=== PATIENT | male | born 1940 | race Caucasian/White ===

== ENCOUNTER 2016-03-13 19:03 | Emergency (ER) | payer OTHER ==
--- NOTE | 2016-03-13 20:29 | DIAGNOSTIC IMAGING REPORT ---
PROCEDURE: XR CHEST 1 VIEW INDICATION: SHORTNESS OF BREATH TECHNIQUE: Portable AP view (). COMPARISON: None. FINDINGS: Allowing for suboptimal inspiration, there is mild volume loss versus scarring. Mid and upper lungs are clear. Heart and mediastinum are normal. Right proximal humeral prosthesis. IMPRESSION: 1. Mild bibasilar subsegmental atelectasis versus scarring. 2. Otherwise negative chest.
--- NOTE | 2016-03-13 20:49 | ED CLINICAL REPORT ---
Clinical Report - Physicians/[facility] [address] [place] [address] 03/13/2016 19:05 Patient: ENRRIQUE LOZANO Time Seen: 19:35. Arrived- By private vehicle. Historian- patient. HISTORY OF PRESENT ILLNESS Chief Complaint: DYSPNEA and fever. This started about 1 week ago and is still present. It was gradual in onset and has been intermittent and waxing/waning. The dyspnea is described as moderate and is severe. The patient has had a cough, a subjective fever and chills. No sputum production, calf pain or foot swelling. He has had severe, sharp, stabbing right-sided chest pain (for several days - he was awakened by this one night. He says that it is similar to prior broken ribs that he has had.). REVIEW OF SYSTEMS The patient has had fever, chills, fatigue and difficulty breathing. No calf pain, pedal edema, palpitations, abdominal pain or constipation. No diarrhea, nausea, vomiting or urinary problems. All systems otherwise negative, except as recorded above. PAST HISTORY PCP - [facility]. Problems: Myocardial Infarction. Diabetes Mellitus. Additional Surgeries: Angioplasty of blood vessel. Corneal transplant. Wrist (L). Medications: Lisinopril Oral 40 mg, daily. Glimepiride Oral (Tablet 2 mg) 1 tablet, 2 x daily. Metoprolol Succinate ER Oral 25mg, 2 x day. ASA 325 mg, daily. HCTZ 25 mg, daily. Metformin HCl Oral 1000 mg, 2x a day. Omeprazole Oral 20 mg, 2x a day. Allergies: Morphine Sulfate. Definite Severe(Anaphylaxis). SOCIAL HISTORY Former smoker. No drug use. He lives with spouse. Has good social support. ADDITIONAL NOTES The nursing notes have been reviewed. PHYSICAL EXAM Vital Signs: Have been reviewed. Appearance: Alert. Eyes: Pupils equal, round and reactive to light. ENT: Pharynx normal. Neck: Normal inspection. CVS: Tachycardia. No cardiac murmur or extra heart sounds. Respiratory: No respiratory distress. Decreased air movement. Abdomen: Soft and nontender. No organomegaly. Back: Normal inspection. No CVA tenderness. Skin: Skin warm and dry. Diaphoresis. Extremities: Extremities exhibit normal ROM. No calf tenderness. No lower extremity edema. LABS, X-RAYS, AND EKG EKG: Rate: 109. RBBB. Non-specific ST segment / T wave abnormalities. The study has been interpreted contemporaneously by the cardiology tech. EKG #2: Rate: 111. RBBB. Non-specific ST segment / T wave abnormalities. The study has been interpreted contemporaneously by the cardiology tech. EKG #3: Rate: 109. RBBB. Non-specific ST segment / T wave abnormalities. The study has been interpreted contemporaneously by the cardiology tech. Chest X-ray: (IMPRESSION: 1. Mild bibasilar subsegmental atelectasis versus scarring. 2. Otherwise negative chest.). The X-rays were interpreted by the radiologist and contemporaneously by me. Laboratory Tests: CBC w Diff: (RODRIGUEZ: 03/13/2016 19:45) ( MsgRcvd 03/13/2016 19:54) Final results Test Result Flag Units (Reference) WHITE BLOOD COUNT 10.2 K/uL (4.5-11.5) RED BLOOD COUNT 4.15 L M/uL (4.50-5.90) HEMOGLOBIN 12.6 L gm/dL (13.5-17.5) HEMATOCRIT 37.3 L % (41.0-53.0) MEAN CELL VOLUME 90 fL (80-100) MEAN CORPUSCULAR HGB 30 pg (26-34) MEAN CORPUSCULAR HGB CONC 34 g/dL (31-37) RED CELL DISTRIBUTION WIDTH 14.6 % (11.6-14.8) PLATELET COUNT 222 K/uL (150-400) NEUTROPHIL % 81.1 H % (50-75) LYMPH % 11.2 L % (25-40) MONO % 6.4 % (3-14) EOSINOPHIL % 1.2 % (0-4) BASOPHIL % 0.1 % (0-2) PT with INR: (RODRIGUEZ: 03/13/2016 19:45) ( MsgRcvd 03/13/2016 20:00) Final results Test Result Flag Units (Reference) INR 1.1 (0.8-1.2) Low Intensity Therapy: INR 1.5-2.0 PT range 18.5-23.1Mod.Intensity Therapy: INR 2.0-3.0 PT range 23.1-31.5High Intensity Therapy: INR 2.5-3.5 PT range 27.4-35.5High Intensity Therapy 2: INR 3.0-4.0 PT range 31.5-39.3 APTT 35 H SECONDS (24-34) D-DIMER QUANTITATIVE 1.32 H ug/mLFEU (0.27-0.52) The primary value of this quantitative assay relates toits negative predictive value (i.e. exclusion) of pulmonaryembolism/deep vein thrombosis/DIC.Elevated levels of d-dimer may also occur with:, age, cancer, inflammation, liver disease,post-op, infection, hematoma, coronary disease, peripheralarteriopathy, bleeding disorders and thrombolytic treatment.Results should be correlated with other clinical andradiological data.Testing Methodology: Latex Immunoassay [id number]: (ORDRIGUEZ: 03/13/2016 19:45) ( MsgRcvd 03/13/2016 20:19) Final results Test Result Flag Units (Reference) PROCALCITONIN <0.5 ng/mL (0-0.5) PCT Concentration: Interpretation : Risk/option for action PCT <=0.5 ng/mL : Systemic : Low risk forinfection(sepsis): progression to severeis not likely. : systemic infection.Local bacterial : CAUTION-PCT levelsinfection is : below 0.5 ng/mL do notpossible. : exclude an infection,because localizedinfections (withoutsystemic signs) may beassociated with suchlow levels. If PCT ismeasured very earlyafter a bacterialchallenge (usually <6hours), these valuesmay still be low. Inthis case PCT shouldbe re-assessed 6-24hours later. PCT >0.5 and : Systemic infection: Moderate risk for<= 2 ng/mL : (sepsis) is : progression to severepossible, but : systemic infection.other conditions : The patient should beare known to : closely monitoredelevate PCT. : both clinically andby re-assessing PCTwithin 6-24 hours. PCT > 2 ng/mL : Systemic infection: High risk for(sepsis) is likely: progression to severeunless other : systemic infection.causes are known. : PCT >= 10 ng/mL : Important systemic: High likelihood ofinflammatory : severe sepsis orresponse, almost : septic shock.exclusively due to:severe bacterial :sepsis or septic :shock. : BNP: (RODRIGUEZ: 03/13/2016 19:45) ( [facility] [place]/13[place] 20:11) Final results Test Result Flag Units (Reference) B-TYPE NATRIURETIC PEPTIDE 101 H pg/ml (5-100) CMP: (RODRIGUEZ: 03/13/2016 19:45) ( NmgRcvd 03/13/2016 20:11) Final results Test Result Flag Units (Reference) GLUCOSE 303 H mg/dL (70-110) BUN 18 mg/dL (7-18) CREATININE 1.1 mg/dL (0.6-1.3) Estimated GFR >60 mL/min Estimated GFR- >60 mL/min Note: Persistent reduction over 3 months in eGFR<60 mL/min/1.73 m2 defines CKD. Patients with eGFR values>=60 mL/min/1.73 m2 may also have CKD if evidence ofpersistent proteinuria. Additional information may be foundat [email or web address]. SODIUM 137 mmol/L (136-145) POTASSIUM 3.8 mmol/L (3.5-5.1) CHLORIDE 100 mmol/L (98-107) CARBON DIOXIDE 29 mmol/L (21-32) CALCIUM 8.5 mg/dL (8.5-10.1) TOTAL PROTEIN 6.0 L g/dL (6.4-8.2) ALBUMIN 2.8 L g/dL (3.3-5.0) BILIRUBIN, TOTAL 0.4 mg/dL (0.0-1.0) ALKALINE PHOSPHATASE 34 L U/L (46-116) AST (SGOT) 14 L U/L (15-37) ALT (SGPT) 19 U/L (12-78) LIPASE 89 U/L (73-393) AMYLASE 51 U/L (25-115) CPK 58 U/L (24-260) TROPONIN I <0.05 ng/mL (0.00-1.5) TROPONIN REFERENCE RANGE:<0.1 NEGATIVE0.1-1.5 INDETERMINANT>1.5 POSITIVE Rapid Influenza Screen: (RODRIGUEZ: 03/13/2016 19:45) ( MsgRcvd 03/13/2016 20:22) Final results SPECIMEN DESCRIPTION: NOW Test Result Flag Units (Reference) RAPID INFLUENZA SCREEN DATE: 03/13/16 INFLUENZA A: NEGATIVE SCREEN FOR INFLUENZA A INFLUENZA B: NEGATIVE SCREEN FOR INFLUENZA B . PROGRESS AND PROCEDURES Course of Care: i had an extended discussion with the patient and his family regarding the results of his studies. I explained to him that I feel he should be transferred to a facility with cardiology care. Dr. Smith had suggested that the patient ought to have serial enzymes and be placed on telemetry. Given his elevated d-dimer, he needs a further evaluation to rule out pulmonary embolism. However he has an allergy to shellfish and iodine. Therefore we cannot do a CTA. I told the patient that I would like to transfer him to [facility] but he insists that he will drive himself as he does not want to pay for an ambulance. I explained to him that I think that this is incredibly dangerous and that it goes against my medical advice I reviewed the reasoning behind this with him at length. He acknowledges an understanding of that risk and yet insists that he will not go by ambulance. He did sign an AMA form. I notified the staff at [facility] and they said that he should proceed to the emergency room and let them know at the registration desk that he is a direct admission. He says that he will do this. Discussed case with hospitalist, (Harley Ag at [facility]). Reviewed test results and need for additional work-up. Agreed upon treatment plan and need for patient follow-up. Consult obtained. the case was discussed with Dr. Raza, cardiology tech. We reviewed the patient's EKGs and he compared them with prior ones. He does not feel that this is a STEMI. He does think that there is a new right bundle branch block and some nonspecific changes. He does suggest that the patient should have telemetry and serial cardiac enzymes. He also agrees with obtaining the CT angiogram given the elevated d-dimer. Case discussed. Phone consult only. Will see patient in the hospital. Patient/family counseled. Old medical records reviewed. CLINICAL IMPRESSION Dyspnea. Chest pain. Abnormal EKG. Abnormal tests: (elevated d-dimer). Possible pneumonia. (Electronically signed by Anival Tillman MD 03/14/2016 9:55)
--- NOTE | 2016-03-13 20:49 | ED NURSING NOTES ---
Clinical Report - Nurses [facility] [address] [place] [address] 03/13/2016 19:05 Patient: ENRRIQUE LOZANO TRIAGE Triage time 19:15 Mar 13 2016. Acuity: LEVEL 3. Chief Complaint: FEVER, CHILLS and "NOT FEELING WELL". Alert. IAN COMA SCORE: Saxe Coma Scale: 15- eyes open spontaneously (4); best verbal response- oriented x 4 (5); best motor response- obeys commands (6). --19:41 Nathaniel Fatima R.N. 19:24 03/13/16. BP: 118/58. HR: 113. RR: 16. O2 saturation: 96% on room air. Temp: 102.4 F. Pain level now: 03/10. Additional comments: (R) side rib pain. --19:41 Nathaniel Fatima R.N. <<STRICKEN ENTRY-- Weight: 79.3 kg stated. Height/Length: 74 inches Per Patient. BMI: 22.5. --END STRIKE>> Correction --19:32 Nathaniel Fatima R.N.. Weight: 83.8 kg measured. Height/Length: 71 inches Per Patient. BMI: 25.8. --19:18 Nathaniel Fatima R.N. Medications ASA 325 mg, daily. HCTZ 25 mg, daily. Metformin HCl Oral 1000 mg, 2x a day. Omeprazole Oral 20 mg, 2x a day. --19:27 Nathaniel Fatima R.N. Glimepiride Oral (Tablet 2 mg) 1 tablet, 2 x daily. Metoprolol Succinate ER Oral 25mg, 2 x day. --19:28 Nathaniel Fatima R.N. Lisinopril Oral 40 mg, daily. --19:28 Nathaniel Fatima R.N. Allergies Morphine Sulfate. Definite Severe(Anaphylaxis) --19:27 Nathaniel Fatima R.N. History Arrived by private vehicle. Historian: patient. Accompanied by spouse. Primary physician ([facility]it[facility]). ( SOB with Chest pain, Fever and Cough.). Onset. (about 5 days ago). He has had a cough. Treatment [employer]ING [employer]ISHER: None. SOCIAL HX: No drug use. FALL RISK ASSESSMENT: Fall risk assessment completed. No fall risk identified. NUTRITIONAL RISK ASSESSMENT: The nutritional risk assessment revealed no deficiencies. FUNCTIONAL ASSESSMENT: Functional assessment: no impairments noted. LEARNING NEEDS ASSESSMENT: The learning needs assessment revealed no barriers. SKIN INTEGRITY ASSESSMENT: Skin integrity risk assessment completed. No skin integrity risk identified. --19:41 Nathaniel Fatima R.N. The patient has had diarrhea. SOCIAL HX: Smoker- current status unknown. --19:46 Nathaniel Fatima R.N. PROBLEMS: Myocardial Infarction. Diabetes Mellitus. --19:21 Nathaniel Fatima R.N. ADDITIONAL SURGERIES: Angioplasty of blood vessel. Corneal transplant. Wrist (L). --19:21 Nathaniel Fatima R.N. Interventions ID band on patient. To treatment room. --19:41 Nathaniel Fatima R.N. PHYSICAL ASSESSMENT Ambulatory to room. GENERAL / NEURO / PSYCH: Alert. Oriented X 4. HEENT: Mucous membranes are pink. RESPIRATORY: Mild respiratory distress. CVS: Cardiac rhythm: sinus tachycardia. Capillary refill less than 2 seconds. Pulses within normal limits. GI / : Abdomen soft and nontender. SKIN: Skin intact. Skin is dry. Hot skin. Normal skin turgor. --19:43 Nathaniel Fatima R.N. RESPIRATORY: Fine crackles present in the bases bilaterally. --20:07 Nathaniel Fatima R.N. NURSING PROGRESS NOTES Oxygen administered by nasal cannula at 2 liters. monitor and storage bin tender, pulse oximeter and NIBP monitor placed on patient; director cardiac- Lead II and V1; monitor alarms on. Patient gowned. Reassurance given. Patient identifiers checked. Call light placed in reach. Side rails up x 1. Bed placed in lowest position. Brakes of bed on. Patient ready for evaluation- chart flagged and ED physician notified. --19:44 Nathaniel Fatima R.N. 19:46 03/13/2016 Site #1 started via IV in the left hand with an 18g angiocath, with aseptic technique and good blood return; one attempt. Blood drawn: rainbow set. Labeled in the presence of the patient and sent to the lab. Saline lock flushed with 10 mL saline (start by DEBBIE Templeton). --19:56 Nathaniel Fatima R.N. 19:53 03/13/16. Patient ID band checked for patient name, birthdate and medical record number. Flu swab obtained by RN via nasal pharyngeal swab. Labeled in the presence of the patient and sent to lab. --19:58 Nathaniel Fatima R.N. 20:00 03/13/2016 Site #2 started via IV in the right forearm with an 18g angiocath; one attempt. Blood drawn: rainbow set and cultures x1. Labeled in the presence of the patient and sent to the lab. Saline lock flushed with 10 mL saline. --20:00 Jareth Lenz R.N. 19:41. EKG was performed by a tech and shown to the ED physician. --20:02 McQuoid, Daysi, ER Tech1 monitor and storage bin tender, pulse oximeter and NIBP monitor placed on patient; (Telemetry strip posted to chart). --20:02 McQuoid, Daysi, ER Tech1 20:27 03/13/2016 Aspirin PO Tablets 325 mg given. Allergies verified and confirmed 5 rights. --20:42 Nathainel Fatima R.N. 20:33 03/13/2016 Started bag #1 1000 mL IV Fluids IV NS (Saline); bolus of 500 mL over 30 minute(s) then at 1000 mL/hr over 60 minute(s) via site #1 via IV pump. Allergies verified and confirmed 5 rights. IV patency established. IV site checked: no pain, redness, or swelling. IV flushed thoroughly pre- and post-medication administration. --20:43 Nathaniel Fatima R.N. 20:47 03/13/2016 Tylenol (Acetaminophen) PO Tablets 1000 mg given. Allergies verified and confirmed 5 rights. --20:47 Nathaniel Fatima R.N. 21:24 03/13/2016 Started 2 gm of Ceftriaxone IVPB in bag #1 50 mL; at 100 mL/hr over 30 minute(s) via site #1 via IV pump. Allergies verified and confirmed 5 rights. IV patency established. IV site checked: no pain, redness, or swelling. IV flushed thoroughly pre- and post-medication administration. --22:04 Nathaniel Fatima R.N. 21:55 03/13/2016 Ceftriaxone IVPB Discontinued: bag #1 infused. Total amount infused: 50 mL. IV patency established. IV site checked: no pain, redness, or swelling. IV flushed thoroughly. (Rocephin 2 Gms IVPB). --22:05 Nathaniel Fatima R.N. 21:57 03/13/2016 Started 500 mg of Zithromax (Azithromycin) IVPB in bag #1 250 mL; at 255 mL/hr over 60 minute(s) via site #1 via IV pump. Allergies verified and confirmed 5 rights. IV patency established. IV site checked: no pain, redness, or swelling. IV flushed thoroughly pre- and post-medication administration. --22:07 Nathaniel Fatima R.N. 22:15 03/13/2016 Lovenox (Enoxaparin Sodium) Subcutaneous 80 mg given. Given in the right abdomen. Allergies verified and confirmed 5 rights. --22:21 Nathaniel Fatima R.N. 21:00 03/13/16. BP: 139/61. HR: 103. RR: 16. O2 saturation: 99% on nasal cannula at 2 liters/minute. Pain level now: 2/10. Additional comments: (R) rib pain. --22:45 Nathaniel Fatima R.N. 22:00 03/13/16. BP: 122/58. HR: 94. RR: 19. O2 saturation: 99% on nasal cannula at 2 liters/minute. --22:47 Nathaniel Fatima R.N. <<STRICKEN ENTRY-- 23:03/13/2016 Site #[address] upon discharge. Good blood return present. Flushed with saline; flushes easily. --00:35 Nathaniel Fatima R.N. --END STRIKE>> Correction. --00:36 Nathaniel Fatima R.N. 23:03/13/2016 Site #[address] upon transfer. Good blood return present. Flushed with 10 mL saline; flushes easily. --00:36 Nathaniel Fatima R.N. 23:03/13/2016 Site #[address] upon transfer. Good blood return present. Flushed with saline; flushes easily. --00:36 Nathaniel Fatima R.N. 23:10 03/14/2016 Zithromax IVPB Discontinued: bag #2 infused. Total amount infused: 250 mL. IV patency established. IV site checked: no pain, redness, or swelling. IV flushed thoroughly. --00:27 Nathaniel Fatima R.N. 23:15 03/14/2016 IV Fluids IV NS Discontinued: bag #1 STOPPED upon transfer. Total amount infused: 550 mL. IV patency established. IV site checked: no pain, redness, or swelling. IV flushed thoroughly. --00:38 Nathaniel Fatima R.N. DISPOSITION / DISCHARGE 23:00 03/13/16. BP: 106/56. HR: 91. RR: 16. O2 saturation: 99% on room air. Temp: 98.7 F (oral). Pain level now: 2/10. Additional comments: (r) rib pain. --23:40 Nathaniel Fatima R.N. Departure time: 5. --23:40 Nathaniel Fatima R.N. 23:15. Condition at departure: improved. No learning barriers present. Discharge instructions provided and reviewed with the patient and spouse. The patient left the Emergency Department against medical advice. The patient appears to be alert and oriented x4. He stated is leaving the ED due to personal reasons (Pt did not want to pay for an ambulance for transfer.). Prior to leaving the ED, he was advised to stay for completion of treatment. He was informed of the risks of leaving and verbalized understanding of these risks. Patient signed form prior to leaving. He left the Emergency Department ambulatory and via private vehicle. --23:48 Nathaniel Fatima R.N. Locked/Released at 03/14/2016 0:41 by Nathaniel Fatima R.N.
--- NOTE | 2016-03-13 20:49 | ED CLINICAL REPORT ---
Clinical Report - Physicians/Mid Levels [facility] [address] [place] [address] 03/13/2016 19:05 Patient: ENRRIQUE LOZANO Time Seen: 19:35. Arrived- By private vehicle. Historian- patient. HISTORY OF PRESENT ILLNESS Chief Complaint: DYSPNEA and fever. This started about 1 week ago and is still present. It was gradual in onset and has been intermittent and waxing/waning. The dyspnea is described as moderate and is severe. The patient has had a cough, a subjective fever and chills. No sputum production, calf pain or foot swelling. He has had severe, sharp, stabbing right-sided chest pain (for several days - he was awakened by this one night. He says that it is similar to prior broken ribs that he has had.). REVIEW OF SYSTEMS The patient has had fever, chills, fatigue and difficulty breathing. No calf pain, pedal edema, palpitations, abdominal pain or constipation. No diarrhea, nausea, vomiting or urinary problems. All systems otherwise negative, except as recorded above. PAST HISTORY PCP - [facility] Than[facility]. Problems: Myocardial Infarction. Diabetes Mellitus. Additional Surgeries: Angioplasty of blood vessel. Corneal transplant. Wrist (L). Medications: Lisinopril Oral 40 mg, daily. Glimepiride Oral (Tablet 2 mg) 1 tablet, 2 x daily. Metoprolol Succinate ER Oral 25mg, 2 x day. ASA 325 mg, daily. HCTZ 25 mg, daily. Metformin HCl Oral 1000 mg, 2x a day. Omeprazole Oral 20 mg, 2x a day. Allergies: Morphine Sulfate. Definite Severe(Anaphylaxis). SOCIAL HISTORY Former smoker. No drug use. He lives with spouse. Has good social support. ADDITIONAL NOTES The nursing notes have been reviewed. PHYSICAL EXAM Vital Signs: Have been reviewed. Appearance: Alert. Eyes: Pupils equal, round and reactive to light. ENT: Pharynx normal. Neck: Normal inspection. CVS: Tachycardia. No cardiac murmur or extra heart sounds. Respiratory: No respiratory distress. Decreased air movement. Abdomen: Soft and nontender. No organomegaly. Back: Normal inspection. No CVA tenderness. Skin: Skin warm and dry. Diaphoresis. Extremities: Extremities exhibit normal ROM. No calf tenderness. No lower extremity edema. LABS, X-RAYS, AND EKG EKG: Rate: 109. RBBB. Non-specific ST segment / T wave abnormalities. The study has been interpreted contemporaneously by the dumper bulk system. EKG #2: Rate: 111. RBBB. Non-specific ST segment / T wave abnormalities. The study has been interpreted contemporaneously by the dumper bulk system. EKG #3: Rate: 109. RBBB. Non-specific ST segment / T wave abnormalities. The study has been interpreted contemporaneously by the dumper bulk system. Chest X-ray: (IMPRESSION: 1. Mild bibasilar subsegmental atelectasis versus scarring. 2. Otherwise negative chest.). The X-rays were interpreted by the radiologist and contemporaneously by me. Laboratory Tests: CBC w Diff: (RODRIGUEZ: 03/13/2016 19:45) ( MsgRcvd 03/13/2016 19:54) Final results Test Result Flag Units (Reference) WHITE BLOOD COUNT 10.2 K/uL (4.5-11.5) RED BLOOD COUNT 4.15 L M/uL (4.50-5.90) HEMOGLOBIN 12.6 L gm/dL (13.5-17.5) HEMATOCRIT 37.3 L % (41.0-53.0) MEAN CELL VOLUME 90 fL (80-100) MEAN CORPUSCULAR HGB 30 pg (26-34) MEAN CORPUSCULAR HGB CONC 34 g/dL (31-37) RED CELL DISTRIBUTION WIDTH 14.6 % (11.6-14.8) PLATELET COUNT 222 K/uL (150-400) NEUTROPHIL % 81.1 H % (50-75) LYMPH % 11.2 L % (25-40) MONO % 6.4 % (3-14) EOSINOPHIL % 1.2 % (0-4) BASOPHIL % 0.1 % (0-2) PT with INR: (RODRIGUEZ: 03/13/2016 19:45) ( MsgRcvd 03/13/2016 20:00) Final results Test Result Flag Units (Reference) INR 1.1 (0.8-1.2) Low Intensity Therapy: INR 1.5-2.0 PT range 18.5-23.1Mod.Intensity Therapy: INR 2.0-3.0 PT range 23.1-31.5High Intensity Therapy: INR 2.5-3.5 PT range 27.4-35.5High Intensity Therapy 2: INR 3.0-4.0 PT range 31.5-39.3 APTT 35 H SECONDS (24-34) D-DIMER QUANTITATIVE 1.32 H ug/mLFEU (0.27-0.52) The primary value of this quantitative assay relates toits negative predictive value (i.e. exclusion) of pulmonaryembolism/deep vein thrombosis/DIC.Elevated levels of d-dimer may also occur with:, age, cancer, inflammation, liver disease,post-op, infection, hematoma, coronary disease, peripheralarteriopathy, bleeding disorders and thrombolytic treatment.Results should be correlated with other clinical andradiological data.Testing Methodology: Latex Immunoassay [id number]: (RODRIGUEZ: 03/13/2016 19:45) ( MsgRcvd 03/13/2016 20:19) Final results Test Result Flag Units (Reference) PROCALCITONIN <0.5 ng/mL (0-0.5) PCT Concentration: Interpretation : Risk/option for action PCT <=0.5 ng/mL : Systemic : Low risk forinfection(sepsis): progression to severeis not likely. : systemic infection.Local bacterial : CAUTION-PCT levelsinfection is : below 0.5 ng/mL do notpossible. : exclude an infection,because localizedinfections (withoutsystemic signs) may beassociated with suchlow levels. If PCT ismeasured very earlyafter a bacterialchallenge (usually <6hours), these valuesmay still be low. Inthis case PCT shouldbe re-assessed 6-24hours later. PCT >0.5 and : Systemic infection: Moderate risk for<= 2 ng/mL : (sepsis) is : progression to severepossible, but : systemic infection.other conditions : The patient should beare known to : closely monitoredelevate PCT. : both clinically andby re-assessing PCTwithin 6-24 hours. PCT > 2 ng/mL : Systemic infection: High risk for(sepsis) is likely: progression to severeunless other : systemic infection.causes are known. : PCT >= 10 ng/mL : Important systemic: High likelihood ofinflammatory : severe sepsis orresponse, almost : septic shock.exclusively due to:severe bacterial :sepsis or septic :shock. : BNP: (RODRIGUEZ: 03/13/2016 19:45) ( [facility] [place] 20:11) Final results Test Result Flag Units (Reference) B-TYPE NATRIURETIC PEPTIDE 101 H pg/ml (5-100) CMP: (RODRIGUEZ: 03/13/2016 19:45) ( OrgRcvd 03/13/2016 20:11) Final results Test Result Flag Units (Reference) GLUCOSE 303 H mg/dL (70-110) BUN 18 mg/dL (7-18) CREATININE 1.1 mg/dL (0.6-1.3) Estimated GFR >60 mL/min Estimated GFR- >60 mL/min Note: Persistent reduction over 3 months in eGFR<60 mL/min/1.73 m2 defines CKD. Patients with eGFR values>=60 mL/min/1.73 m2 may also have CKD if evidence ofpersistent proteinuria. Additional information may be foundat www.[email or web address].org. SODIUM 137 mmol/L (136-145) POTASSIUM 3.8 mmol/L (3.5-5.1) CHLORIDE 100 mmol/L (98-107) CARBON DIOXIDE 29 mmol/L (21-32) CALCIUM 8.5 mg/dL (8.5-10.1) TOTAL PROTEIN 6.0 L g/dL (6.4-8.2) ALBUMIN 2.8 L g/dL (3.3-5.0) BILIRUBIN, TOTAL 0.4 mg/dL (0.0-1.0) ALKALINE PHOSPHATASE 34 L U/L (46-116) AST (SGOT) 14 L U/L (15-37) ALT (SGPT) 19 U/L (12-78) LIPASE 89 U/L (73-393) AMYLASE 51 U/L (25-115) CPK 58 U/L (24-260) TROPONIN I <0.05 ng/mL (0.00-1.5) TROPONIN REFERENCE RANGE:<0.1 NEGATIVE0.1-1.5 INDETERMINANT>1.5 POSITIVE Rapid Influenza Screen: (RODRIGUEZ: 03/13/2016 19:45) ( MsgRcvd 03/13/2016 20:22) Final results SPECIMEN DESCRIPTION: NOW Test Result Flag Units (Reference) RAPID INFLUENZA SCREEN DATE: 03/13/16 INFLUENZA A: NEGATIVE SCREEN FOR INFLUENZA A INFLUENZA B: NEGATIVE SCREEN FOR INFLUENZA B . PROGRESS AND PROCEDURES Course of Care: i had an extended discussion with the patient and his family regarding the results of his studies. I explained to him that I feel he should be transferred to a facility with cardiology care. Dr. Smith had suggested that the patient ought to have serial enzymes and be placed on telemetry. Given his elevated d-dimer, he needs a further evaluation to rule out pulmonary embolism. However he has an allergy to shellfish and iodine. Therefore we cannot do a CTA. I told the patient that I would like to transfer him to [facility] but he insists that he will drive himself as he does not want to pay for an ambulance. I explained to him that I think that this is incredibly dangerous and that it goes against my medical advice I reviewed the reasoning behind this with him at length. He acknowledges an understanding of that risk and yet insists that he will not go by ambulance. He did sign an AMA form. I notified the staff at [facility] and they said that he should proceed to the emergency room and let them know at the registration desk that he is a direct admission. He says that he will do this. Discussed case with hospitalist, (Harley Ag at [facility]). Reviewed test results and need for additional work-up. Agreed upon treatment plan and need for patient follow-up. Consult obtained. the case was discussed with Dr. Raza, dumper bulk system. We reviewed the patient's EKGs and he compared them with prior ones. He does not feel that this is a STEMI. He does think that there is a new right bundle branch block and some nonspecific changes. He does suggest that the patient should have telemetry and serial cardiac enzymes. He also agrees with obtaining the CT angiogram given the elevated d-dimer. Case discussed. Phone consult only. Will see patient in the hospital. Patient/family counseled. Old medical records reviewed. CLINICAL IMPRESSION Dyspnea. Chest pain. Abnormal EKG. Abnormal tests: (elevated d-dimer). Possible pneumonia. (Electronically signed by Anival Tillman MD 03/14/2016 9:55)
--- NOTE | 2016-03-13 20:49 | ED ORDER SUMMARY ---
..... Patient: ENRRIQUE LOZANO OrderSheet [facility] VisitID: [id number] [place] [address] 75y, M Registration Date/Time: 03/13/2016 ORDER SHEET Weight: 83.8 kg (measured) Allergies: Morphine Sulfate GENERAL ORDERS: EKG - ER Stat (19:22 03/13/2016 Samantha RAnushaNAnusha verbal order read back to Yung CORONEL) (Ack 19:28 Geoffrey) (19:45 AMcQuoid ER Tech1) Rapid Influenza Screen (Nasal Pharyngeal) (Now) Urgent (19:47 03/13/2016 Samantha R.NAnusha verbal order read back to Yung CORONEL) (19:54 Samantha R.N.) Chest 1V Urgent (19:48 03/13/2016 Yung CORONEL) (Ack 19:51 LTapper) (19:55 Samantha R.N.) Reference Archivist (Continuous) (19:48 03/13/2016 Yung CORONEL) (19:54 Samantha R.N.) CBC w Diff Urgent (19:48 03/13/2016 Yung CORONEL) (Ack 19:51 LTapper) (19:54 Samantha R.N.) CMP Urgent (19:48 03/13/2016 Yung CORONEL) (Ack 19:51 LTapper) (19:54 Samantha R.N.) PT with INR Urgent (19:48 03/13/2016 Yung CORONEL) (Ack 19:51 LTapper) (19:54 Samantha R.N.) PTT Urgent (19:48 03/13/2016 Yung CORONEL) (Ack 19:51 LTapper) (19:55 Samantha R.N.) D-Dimer Urgent (19:48 03/13/2016 Yung CORONEL) (Ack 19:51 LTapper) (19:55 Samantha R.N.) BNP Urgent (19:48 03/13/2016 Yung CORONEL) (Ack 19:51 LTapper) (19:55 Samantha R.N.) CPK Urgent (19:48 03/13/2016 Yung CORONEL) (Ack 19:51 LTapper) (19:55 Samantha R.N.) Troponin-I Urgent (19:48 03/13/2016 Yung CORONEL) (Ack 19:51 LTapper) (19:55 Samantha R.N.) Amylase Urgent (19:48 03/13/2016 Yung CORONEL) (Ack 19:51 LTapper) (19:55 Samantha R.N.) Lipase Urgent (19:48 03/13/2016 Yung CORONEL) (Ack 19:51 LTapper) (19:55 Samantha R.N.) Oxygen (2 L/min) (NC) (19:48 03/13/2016 Yung CORONEL) (19:54 Samantha R.N.) Pulse oximeter (19:48 03/13/2016 Yung CORONEL) (19:54 Samantha R.N.) EKG - ER Stat (19:48 03/13/2016 Yung CORONEL) (19:49 LTapper) Blood Culture (No) (N/A) Urgent (19:50 03/13/2016 Yung CORONEL) (19:55 Samantha R.N.) (Ack 19:55 LTapper) PCT (Procalcitonin) Urgent (19:50 03/13/2016 Yung CORONEL) (19:55 Samantha R.N.) (Ack 19:55 LTapper) CTA Thorax w Cont (Yes) (See report) Urgent (20:24 03/13/2016 Yung CORONEL) (Ack 20:28 LTapper) (21:08 Yung CORONEL) (Cancelled: Other21:08 Yung CORONEL) MEDICATION ORDERS: Tylenol PO 1,000 mg (NOW) (20:23 03/13/2016 Yung CORONEL) (20:47 Samantha R.N.) Aspirin PO 325 mg (Do not crush or chew, NOW) (20:40 03/13/2016 Samantha R.N. verbal order read back to Yung CORONEL) (20:42 Samantha R.N.) Lovenox Subcut 1 mg/kg (HIGH ALERT MEDICATION, NOW) (21:21 03/13/2016 Yung CORONEL) (22:21 Samantha Ruiz) IV FLUIDS: IV Saline Lock (19:24 03/13/2016 Samantha Ruiz verbal order read back to Yung CORONEL) (19:56 Samantha Ruiz) IV Saline Lock (19:48 03/13/2016 Yung CORONEL) (Cancelled: Duplicate Order19:51 Yung CORONEL) IV NS : initial bolus 500 mL (1000 mL/hr), then 125 mL/hr for 4h (NOW); Urgent (20:24 03/13/2016 Yung CORONEL) (20:43 Samantha Ruiz) Ceftriaxone IV 2 gm/50mL (NOW) (21:24 03/13/2016 Yung CORONEL) (22:04 Samantha Ruiz) Zithromax IV 500 mg/250 mL (NOW) (21:25 03/13/2016 Yung CORONEL) (22:07 Samantha Umanzor.NAnusha) ORDER SHEET NOTES: [Electronically signed by Nathaniel Fatima R.N. (00:41 03/14/2016)] [Electronically locked/signed by Nathaniel Fatima R.N. (00:41 03/14/2016)]
--- NOTE | 2016-03-14 09:55 | ED MED RECONCILIATION SUMMARY ---
Patient: ENRRIQUE LOZANO Medication Reconciliation Report [facility] VisitID: [id number] [address] [place] [address] 75y, M Registration Date/Time: 03/13/2016 Weight: 83.8 kg Height/Length: 71 in. BMI: 25.8 ALLERGIES: Morphine Sulfate The patient's Home Medications are listed below: THE FOLLOWING MEDICATIONS NEED TO BE RECONCILED: ASA 325 mg, daily Glimepiride Oral (2 mg) 1 tablet, 2 x daily HCTZ 25 mg, daily Lisinopril Oral 40 mg, daily Metformin HCl Oral 1000 mg, 2x a day Metoprolol Succinate ER Oral 25mg, 2 x day Omeprazole Oral 20 mg, 2x a day The source(s) of the original Home Medication information: Not obtained. The following Medications were given to the patient in the Emergency Department: Aspirin [PO] PO 325 mg, administered: 03/13/2016 8:27:00 PM IV NS IV Fluids bolus 500 mL over 30 minute(s), then 1000 mL/hr, administered: 03/13/2016 8:33:00 PM Tylenol [PO] PO 1000 mg, administered: 03/13/2016 8:47:00 PM Ceftriaxone [IVPB] IVPB bolus 0, then 2 gm 100 mL/hr, administered: 03/13/2016 9:24:00 PM Zithromax [IVPB] IVPB bolus 0, then 500 mg 255 mL/hr, administered: 03/13/2016 9:57:00 PM Lovenox [Subcutaneous] Subcutaneous 80 mg, administered: 03/13/2016 10:15:00 PM The following Medications were prescribed to the patient: None.
--- NOTE | 2016-03-14 09:55 | ED MAR SUMMARY ---
..... Medication Administration Record [facility] [address] [place] [address] Patient: ENRRIQUE LOZANO Visit ID: [id number] 75y, M Weight: 83.8 kg Height/Length: 71 in BMI: 25.8 ALLERGIES: Morphine Sulfate Given 20:27 03/13/2016 Nathaniel Fatima R.N. Medication Administered: ASPIRIN [PO], Dose: 325 mg Tablets PO. Medication Ordered: Aspirin PO 325 mg (Do not crush or chew, NOW). Start 20:33 03/13/2016 Nathaniel Fatima R.N., Stop 23:15 03/14/2016 Nathaniel Fatima R.N. Medication Administered: IV NS (SALINE), Dose: IV Fluids over 60 minute(s), Rate: 1000 mL/hr, Bolus: 500 mL over 30 minute(s), Dispensed: 1000 mL bag, Site: #1 left hand. Medication Ordered: IV NS : initial bolus 500 mL (1000 mL/hr), then 125 mL/hr for 4h (NOW); Urgent. Given 20:47 03/13/2016 Nathaniel Fatima R.N. Medication Administered: TYLENOL [PO] (ACETAMINOPHEN), Dose: 1000 mg Tablets PO. Medication Ordered: Tylenol PO 1,000 mg (NOW). Start 21:24 03/13/2016 Nathaniel Fatima R.N., Stop 21:55 03/13/2016 Nathaniel Fatima R.N. Medication Administered: CEFTRIAXONE [IVPB], Dose: 2 gm IVPB over 30 minute(s), Rate: 100 mL/hr, Dispensed: 50 mL bag, Site: #1 left hand. Medication Ordered: Ceftriaxone IV 2 gm/50mL (NOW). Start 21:57 03/13/2016 Nathaniel Fatima R.N., Stop 23:10 03/14/2016 Nathaniel Fatima R.N. Medication Administered: ZITHROMAX [IVPB] (AZITHROMYCIN), Dose: 500 mg IVPB over 60 minute(s), Rate: 255 mL/hr, Dispensed: 250 mL bag, Site: #1 left hand. Medication Ordered: Zithromax IV 500 mg/250 mL (NOW). Given 22:15 03/13/2016 Nathaniel Fatima R.N. Medication Administered: LOVENOX [SUBCUTANEOUS] (ENOXAPARIN SODIUM), Dose: 80 mg Subcutaneous. Medication Ordered: Lovenox Subcut 1 mg/kg (HIGH ALERT MEDICATION, NOW).
--- NOTE | 2016-03-14 09:55 | ED MAR SUMMARY ---
..... Medication Administration Record [facility] [address] [place] [address] Patient: ENRRIQUE LOZANO Visit ID: [id number] 75y, M Weight: 83.8 kg Height/Length: 71 in BMI: 25.8 ALLERGIES: Morphine Sulfate Given 20:27 03/13/2016 Nathaniel Fatima R.N. Medication Administered: ASPIRIN [PO], Dose: 325 mg Tablets PO. Medication Ordered: Aspirin PO 325 mg (Do not crush or chew, NOW). Start 20:33 03/13/2016 Nathaniel Fatima R.N., Stop 23:15 03/14/2016 Nathaniel Fatima R.N. Medication Administered: IV NS (SALINE), Dose: IV Fluids over 60 minute(s), Rate: 1000 mL/hr, Bolus: 500 mL over 30 minute(s), Dispensed: 1000 mL bag, Site: #1 left hand. Medication Ordered: IV NS : initial bolus 500 mL (1000 mL/hr), then 125 mL/hr for 4h (NOW); Urgent. Given 20:47 03/13/2016 Nathaniel Fatima R.N. Medication Administered: TYLENOL [PO] (ACETAMINOPHEN), Dose: 1000 mg Tablets PO. Medication Ordered: Tylenol PO 1,000 mg (NOW). Start 21:24 03/13/2016 Nathaniel Fatima R.N., Stop 21:55 03/13/2016 Nathaniel Fatima R.N. Medication Administered: CEFTRIAXONE [IVPB], Dose: 2 gm IVPB over 30 minute(s), Rate: 100 mL/hr, Dispensed: 50 mL bag, Site: #1 left hand. Medication Ordered: Ceftriaxone IV 2 gm/50mL (NOW). Start 21:57 03/13/2016 Nathaniel Fatima R.N., Stop 23:10 03/14/2016 Nathaniel Fatima R.N. Medication Administered: ZITHROMAX [IVPB] (AZITHROMYCIN), Dose: 500 mg IVPB over 60 minute(s), Rate: 255 mL/hr, Dispensed: 250 mL bag, Site: #1 left hand. Medication Ordered: Zithromax IV 500 mg/250 mL (NOW). Given 22:15 03/13/2016 Nathaniel Fatima R.N. Medication Administered: LOVENOX [SUBCUTANEOUS] (ENOXAPARIN SODIUM), Dose: 80 mg Subcutaneous. Medication Ordered: Lovenox Subcut 1 mg/kg (HIGH ALERT MEDICATION, NOW).
--- NOTE | 2016-03-14 09:55 | ED DISCHARGE INSTRUCTIONS ---
Patient: ENRRIQUE LOZANO General Instructions [facility] VisitID: [id number] [place] [address] 75y, M Registration Date/Time: 03/13/2016 Dyspnea. Chest pain. Abnormal EKG. Abnormal tests: (elevated d-dimer). ADDITIONAL INFORMATION Chest Pain, Uncertain Cause Chest pain can happen for a number of reasons. Sometimes the cause can not be determined. If yourcondition does not seem serious, and your pain does not appear to be coming from your heart, your doctor may recommend watching it closely. Sometimes the signs of a serious problem take more time to appear. Therefore, watch for the warning signs listed below. Home care After your visit, follow these recommendations: Rest today and avoid strenuous activity. Take any prescribed medicine as directed. Follow-up care Follow up with your doctor or this facility as instructed or if you do not start to feel better within 24 hours. Call 911 Get immediate medical attention if any of the following occur: A change in the type of pain: if it feels different, becomes more severe, lasts longer, or begins to spread into your shoulder, arm, neck, jaw or back Shortness of breath or increased pain with breathing Weakness, dizziness, or fainting Rapid heart beat Get prompt medical attention Call your doctor right away if any of the following occur: Cough with dark colored sputum (phlegm) or blood Fever of 100.4F(38C) or higher, or as directed by your health care provider Swelling, pain or redness in one leg You have been given the following additional information: Chest Pain, Uncertain Cause (Electronically signed by Anival Tillman MD 03/14/2016 9:55)
--- NOTE | 2016-03-14 09:55 | ED MED RECONCILIATION SUMMARY ---
Patient: ENRRIQUE LOZANO Medication Reconciliation Report [facility] VisitID: [id number] [address] [place] [address] 75y, M Registration Date/Time: 03/13/2016 Weight: 83.8 kg Height/Length: 71 in. BMI: 25.8 ALLERGIES: Morphine Sulfate The patient's Home Medications are listed below: THE FOLLOWING MEDICATIONS NEED TO BE RECONCILED: ASA 325 mg, daily Glimepiride Oral (2 mg) 1 tablet, 2 x daily HCTZ 25 mg, daily Lisinopril Oral 40 mg, daily Metformin HCl Oral 1000 mg, 2x a day Metoprolol Succinate ER Oral 25mg, 2 x day Omeprazole Oral 20 mg, 2x a day The source(s) of the original Home Medication information: Not obtained. The following Medications were given to the patient in the Emergency Department: Aspirin [PO] PO 325 mg, administered: 03/13/2016 8:27:00 PM IV NS IV Fluids bolus 500 mL over 30 minute(s), then 1000 mL/hr, administered: 03/13/2016 8:33:00 PM Tylenol [PO] PO 1000 mg, administered: 03/13/2016 8:47:00 PM Ceftriaxone [IVPB] IVPB bolus 0, then 2 gm 100 mL/hr, administered: 03/13/2016 9:24:00 PM Zithromax [IVPB] IVPB bolus 0, then 500 mg 255 mL/hr, administered: 03/13/2016 9:57:00 PM Lovenox [Subcutaneous] Subcutaneous 80 mg, administered: 03/13/2016 10:15:00 PM The following Medications were prescribed to the patient: None.
--- NOTE | 2016-03-14 09:55 | ED DISCHARGE INSTRUCTIONS ---
Patient: ENRRIQUE LOZANO General Instructions [facility] VisitID: [id number] [place] [address] 75y, M Registration Date/Time: 03/13/2016 Dyspnea. Chest pain. Abnormal EKG. Abnormal tests: (elevated d-dimer). ADDITIONAL INFORMATION Chest Pain, Uncertain Cause Chest pain can happen for a number of reasons. Sometimes the cause can not be determined. If yourcondition does not seem serious, and your pain does not appear to be coming from your heart, your doctor may recommend watching it closely. Sometimes the signs of a serious problem take more time to appear. Therefore, watch for the warning signs listed below. Home care After your visit, follow these recommendations: Rest today and avoid strenuous activity. Take any prescribed medicine as directed. Follow-up care Follow up with your doctor or this facility as instructed or if you do not start to feel better within 24 hours. Call 911 Get immediate medical attention if any of the following occur: A change in the type of pain: if it feels different, becomes more severe, lasts longer, or begins to spread into your shoulder, arm, neck, jaw or back Shortness of breath or increased pain with breathing Weakness, dizziness, or fainting Rapid heart beat Get prompt medical attention Call your doctor right away if any of the following occur: Cough with dark colored sputum (phlegm) or blood Fever of 100.4F(38C) or higher, or as directed by your health care provider Swelling, pain or redness in one leg You have been given the following additional information: Chest Pain, Uncertain Cause (Electronically signed by Anival Tillman MD 03/14/2016 9:55)
== END 2016-03-13 23:15 | disposition short-term general hospital (02) ==
LOC: ED SRH 19:03
DX: R06.00 Dyspnea, unspecified (principal); R07.9 Chest pain, unspecified; R79.89 Other specified abnormal findings of blood chemistry; R94.31 Abnormal electrocardiogram [ECG] [EKG]; E11.9 Type 2 diabetes mellitus without complications; I25.2 Old myocardial infarction; Z79.84 Long term (current) use of oral hypoglycemic drugs; Z79.82 Long term (current) use of aspirin; Z88.5 Allergy status to narcotic agent; Z87.891 Personal history of nicotine dependence
CPT/HCPCS: 90065; 90074; 90100; 90616; 91320; 91400; 91556; 92235; 92530; 92610; 93004; 94001; 94060; 95059